=== PATIENT | female | born 1940 | race Caucasian/White ===

== ENCOUNTER 2021-09-04 19:31 | Emergency (ER) | payer OTHER ==
[~2021-09-04] VITALS: Ht 162.6 cm; Wt 75.3 kg
[2021-09-04 19:43] VITALS: BP_SYST 177
[2021-09-04] MEDS ORDERED: DIPH-TET-PERTUS Vaccine 0.5 ML VIAL (ADACEL) I.M. ONE (20:00)
[2021-09-04] MEDS ORDERED: BACITRACIN 1 GM OINT TP ONE (20:00)
[2021-09-04] MEDS ORDERED: LIDOCAINE/EPI 1% 1:100000 20 ML VIAL INJ ONE (20:00)
--- NOTE | 2021-09-04 20:00 | NUR ---
Note derek in EDM - 09/04/21 at 2003 by [email or web address] Patient to bed 01 to judi for evaluation. Side rails up.
--- NOTE | 2021-09-04 20:00 | NUR ---
Patient to ER bed 01 to gown for evaluation. Side rails up.
--- NOTE | 2021-09-04 20:01 | NUR ---
ER Dr. WHALEN at bedside examining patient.
--- NOTE | 2021-09-04 20:04 | NUR ---
PATIENT BROUGHT IN FROM HOME ACCOMPANIED BY FAMILY. PATIENT C/O 2 INCH LACERATION TO POSTERIOR SCALP AFTER FALLING BACK IN KITCHEN HITTING HEAD ON METAL KNOB. PATIENT DENIES ANY LOSS OF CONSCIOUSNESS, DENIES ANY USE OF BLOOD THINNERS, NAUSEA , VOMITING, DIZZINESS, BLURRED VISION. PAIN 4/10 THROBBING. NO OTHER COMPLAINTS/INJURIES PER PATIENT OR NOTED.
--- NOTE | 2021-09-04 20:18 | NUR ---
MD AT BEDSIDE FOR LACERATION REPAIR. 2 SHABANA PLACED. PT TOLERATED WELL.
[2021-09-04 20:31] VITALS: BP_SYST 177
--- NOTE | 2021-09-04 20:31 | NUR ---
Patient given written and verbal discharge instructions and verbalizes understanding. ER DR KOBY BOLAÑOS discussed with patient the results and treatment provided. Patient in stable condition. ID arm band removed. Patient educated on pain management and to follow up with PMD. Pain Scale 0/10. Opportunity for questions provided and answered. Medication side effect fact sheet provided.
== END 2021-09-04 20:31 | disposition home or self-care (01) ==
LOC: SED 19:31
DX: S01.01XA Laceration without foreign body of scalp, initial encounter (principal); W18.39XA Other fall on same level, initial encounter; Y93.89 Activity, other specified; Y92.89 Other specified places as the place of occurrence of the external cause; Y99.8 Other external cause status
CPT/HCPCS: 90715; 99283